=== PATIENT | female | born 2000 | race Two or more races ===

== ENCOUNTER 2020-02-18 14:45 | Outpatient (CLI) | payer OTHER | END 2020-02-18 14:56 | disposition home or self-care (01) | LOC: RAD 14:45 | PROVIDERS: ATTEND General Practice | DX: S60.031A Contusion of right middle finger without damage to nail, initial encounter (principal) ==

== ENCOUNTER 2023-03-30 16:11 | Emergency (ER) | payer OTHER ==
[~2023-03-30] VITALS: Ht 157.5 cm; Wt 78.0 kg
[2023-03-30] MEDS ORDERED: ZOFRAN8 MG PO (22:53)
[2023-03-30] MEDS ORDERED: PEPCID AC20 MG PO (22:53)
== END 2023-03-30 23:05 | disposition home or self-care (01) ==
LOC: ER 16:11
DX: Z34.90 Encounter for supervision of normal pregnancy, unspecified, unspecified trimester (principal); K52.89 Other specified noninfective gastroenteritis and colitis; R10.9 Unspecified abdominal pain; R11.10 Vomiting, unspecified

== ENCOUNTER 2023-06-03 08:04 | Outpatient (CLI) | payer OTHER ==
[~2023-06-03 08:04] MED LIST: PEPCID AC20 MG PO; ZOFRAN8 MG PO
== END 2023-06-03 10:36 | disposition home or self-care (01) ==
LOC: PRENATAL 08:04
PROVIDERS: ATTEND Obstetrics & Gynecology Maternal & Fetal Medicine
DX: O35.3XX0 Maternal care for (suspected) damage to fetus from viral disease in mother, not applicable or unspecified (principal); O44.00 Complete placenta previa NOS or without hemorrhage, unspecified trimester; O43.90 Unspecified placental disorder, unspecified trimester; O34.219 Maternal care for unspecified type scar from previous cesarean delivery; Z3A.20 20 weeks gestation of pregnancy

== ENCOUNTER → 2023-06-30 | Emergency (ER) | payer OTHER ==
[~2023-06-30] VITALS: Ht 157.5 cm; Wt 85.3 kg
[~2023-06-30] MED LIST changes: +ZITHROMAX200 MG PO
== END | disposition left against medical advice (07) ==
LOC: ER 16:47
DX: Z53.21 Procedure and treatment not carried out due to patient leaving prior to being seen by health care provider (principal)

== ENCOUNTER 2023-07-01 16:02 | Emergency (ER) | payer OTHER ==
[~2023-07-01] VITALS: Ht 157.5 cm; Wt 85.3 kg
[~2023-07-01 16:02] MED LIST changes: -ZITHROMAX200 MG PO
[2023-07-01 17:18] LABS: PH,URINE 7.5 (5.0-8.0); URINE APPEARANCE Clear; URINE BILIRRUBIN Negative (NEGATIVE); URINE BLOOD Negative; URINE COLOR Yellow; URINE GLUCOSE Negative (NEGATIVE); URINE LEUKOCYTE Negative; URINE NITRATE Negative; URINE PROTEIN Trace (NEGATIVE)
[2023-07-01 17:21] LABS: URINE BACTERIA 624.7 uL (0.0-1933); URINE EPITHELIAL CELLS 16.2 uL (0.0-38.8); URINE RBC 5.4 uL (0.0-20.8); URINE WBC 14.9 uL (0.0-23.2)
[2023-07-01 17:22] LABS: HEMATOCRIT 28.8 % (36.0-45.00); HEMOGLOBIN 9.9 g/dL (12.0-15.00); MEAN CELL VOLUME 81.6 fL (80.00-100.00); MEAN CORPUSCULAR HEMOGLOBIN 28.2 pg (27.00-32.0); MEAN CORPUSCULAR HGB CONC 34.5 g/dl (32.0-36.0); PLATELET COUNT 327 K/uL (150-450); RED BLOOD COUNT 3.53 M/uL (4.00-6.00); RED CELL DISTRIBUTION WIDTH 14.3 % (11.5-14.5)
[2023-07-01 17:27] LABS: CALCIUM 8.6 mg/dL (8.5-10.1); CREATININE SERUM 0.59 mg/dL (0.55-1.02); GFR 125.22; POTASSIUM 3.46 mEq/L (3.5-5.1)
[2023-07-01] MEDS ORDERED: ZITHROMAX200 MG PO (18:13)
== END 2023-07-01 18:20 | disposition home or self-care (01) ==
LOC: ER 16:02
PROVIDERS: General Practice
DX: O26.892 Other specified pregnancy related conditions, second trimester (principal); Z3A.23 23 weeks gestation of pregnancy; B34.9 Viral infection, unspecified; Z20.822 Contact with and (suspected) exposure to COVID-19

== ENCOUNTER 2023-08-07 23:05 | Inpatient (IN) | payer OTHER ==
[~2023-08-07] VITALS: Ht 167.6 cm; Wt 113.4 kg
[~2023-08-07 23:05] MED LIST changes: +ZITHROMAX200 MG PO
[2023-08-08 00:08] LABS: ABG PH 7.429 (7.35-7.45); ABG PO2 58.8 mmHg (80-100); ABG pCO2 34.5 mmHg (35-45)
[2023-08-08 00:09] LABS: BASE EXCESS -1.2 mmol/l; BICARBONATE 22.4 mmol/l (23-25); SaO2 90.8 %; Tco2 23.4 mmol/l; allen test SATISFACTORY; o2 21 %; puncture site RADIAL RIGHT
[2023-08-08 01:05] LABS: URINE APPEARANCE Clear; URINE BILIRRUBIN Negative (NEGATIVE); URINE BLOOD Negative; URINE COLOR Yellow; URINE GLUCOSE Negative (NEGATIVE); URINE LEUKOCYTE Negative; URINE NITRATE Negative; URINE PROTEIN Negative (NEGATIVE); URINE UROBILINOGEN 0.2 E.U./dl
[2023-08-08 01:06] LABS: URINE BACTERIA 239.3 uL (0.0-1933); URINE EPITHELIAL CELLS 4.9 uL (0.0-38.8); URINE WBC 2.7 uL (0.0-23.2)
[2023-08-08 01:07] LABS: URINE RBC 0.7 uL (0.0-20.8)
[2023-08-08 02:32] LABS: HEMATOCRIT 26.1 % (36.0-45.00); HEMOGLOBIN 8.9 g/dL (12.0-15.00); MEAN CORPUSCULAR HEMOGLOBIN 27.6 pg (27.00-32.0); MEAN CORPUSCULAR HGB CONC 34.2 g/dl (32.0-36.0); PLATELET COUNT 426 K/uL (150-450); RED BLOOD COUNT 3.22 M/uL (4.00-6.00); RED CELL DISTRIBUTION WIDTH 14.3 % (11.5-14.5)
[2023-08-08 03:13] LABS: CALCIUM 8.2 mg/dL (8.5-10.1); CREATININE SERUM 0.49 mg/dL (0.55-1.02); GFR 155.16; POTASSIUM 3.45 mEq/L (3.5-5.1)
[2023-08-12 18:08] LABS: HEMATOCRIT 26.9 % (36.0-45.00); MEAN CORPUSCULAR HEMOGLOBIN 27.2 pg (27.00-32.0); MEAN CORPUSCULAR HGB CONC 33.6 g/dl (32.0-36.0); PLATELET COUNT 440 K/uL (150-450); RED BLOOD COUNT 3.33 M/uL (4.00-6.00); RED CELL DISTRIBUTION WIDTH 14.9 % (11.5-14.5)
[2023-08-12 18:42] LABS: ALBUMIN 2.4 gm/dL (3.4-5.0); BILIRUBIN TOTAL 0.19 mg/dL (0.3-1.2); CALCIUM 8.8 mg/dL (8.5-10.1); CREATININE SERUM 0.62 mg/dL (0.55-1.02); GFR 118.26; GLOBULINA 3.8 G/DL (2.4-3.5); POTASSIUM 4.28 mEq/L (3.5-5.1); TOTAL PROTEIN 6.2 gm/dL (6.4-8.2)
[2023-08-12 20:16] LABS: PH,URINE 6.5 (5.0-8.0); URINE APPEARANCE Clear; URINE BILIRRUBIN Negative (NEGATIVE); URINE BLOOD Negative; URINE COLOR Yellow; URINE GLUCOSE Negative (NEGATIVE); URINE LEUKOCYTE Negative; URINE NITRATE Negative; URINE PROTEIN Negative (NEGATIVE); URINE UROBILINOGEN 0.2 E.U./dl
[2023-08-12 20:17] LABS: URINE BACTERIA 88.1 uL (0.0-1933); URINE EPITHELIAL CELLS 15.9 uL (0.0-38.8); URINE RBC 22.2 uL (0.0-20.8)
[2023-08-14 07:53] LABS: ALBUMIN 2.3 gm/dL (3.4-5.0); BILIRUBIN TOTAL 0.15 mg/dL (0.3-1.2); CALCIUM 8.3 mg/dL (8.5-10.1); CREATININE SERUM 0.42 mg/dL (0.55-1.02); GFR 185.36; GLOBULINA 3.2 G/DL (2.4-3.5); POTASSIUM 3.93 mEq/L (3.5-5.1); TOTAL PROTEIN 5.5 gm/dL (6.4-8.2)
[2023-08-14 08:15] LABS: HEMATOCRIT 25.5 % (36.0-45.00); HEMOGLOBIN 8.7 g/dL (12.0-15.00); MEAN CELL VOLUME 81.6 fL (80.00-100.00); MEAN CORPUSCULAR HEMOGLOBIN 27.8 pg (27.00-32.0); MEAN CORPUSCULAR HGB CONC 34.1 g/dl (32.0-36.0); PLATELET COUNT 385 K/uL (150-450); RED BLOOD COUNT 3.12 M/uL (4.00-6.00); RED CELL DISTRIBUTION WIDTH 14.9 % (11.5-14.5)
== END 2023-08-14 13:02 | disposition home or self-care (01) | DRG 832 ==
LOC: ER 23:05 → OB/GYN 08-08 17:04
PROVIDERS: Emergency Medicine; General Practice; Internal Medicine; ADMIT Obstetrics & Gynecology Obstetrics; ATTEND Obstetrics & Gynecology Obstetrics
PROC: 3E0F7GC Introduction of Other Therapeutic Substance into Respiratory Tract, Via Natural or Artificial Opening (ICD-10-PCS; principal; 2023-08-08)
PROC: 4A1HXCZ Monitoring of Products of Conception, Cardiac Rate, External Approach (ICD-10-PCS; 2023-08-08)
PROC: BY4FZZZ Ultrasonography of Third Trimester, Single Fetus (ICD-10-PCS; 2023-08-08)
PROC: BU4CZZZ Ultrasonography of Uterus and Ovaries (ICD-10-PCS; 2023-08-08)
DX: O99.513 Diseases of the respiratory system complicating pregnancy, third trimester (principal); O41.03X0 Oligohydramnios, third trimester, not applicable or unspecified; J06.9 Acute upper respiratory infection, unspecified; O26.843 Uterine size-date discrepancy, third trimester; O36.8130 Decreased fetal movements, third trimester, not applicable or unspecified; O34.211 Maternal care for low transverse scar from previous cesarean delivery; O26.853 Spotting complicating pregnancy, third trimester; Z3A.29 29 weeks gestation of pregnancy; Z20.822 Contact with and (suspected) exposure to COVID-19

== ENCOUNTER 2023-09-19 03:27 | Inpatient (IN) | payer OTHER ==
[~2023-09-19] VITALS: Ht 157.5 cm; Wt 89.8 kg
[2023-09-19 03:55] LABS: PH,URINE 6.5 (5.0-8.0); URINE APPEARANCE Clear; URINE BILIRRUBIN Negative (NEGATIVE); URINE BLOOD Negative; URINE COLOR Yellow; URINE GLUCOSE Negative (NEGATIVE); URINE LEUKOCYTE Negative; URINE NITRATE Negative; URINE UROBILINOGEN 0.2 E.U./dl
[2023-09-19 03:58] LABS: HEMATOCRIT 28.3 % (36.0-45.00); HEMOGLOBIN 9.3 g/dL (12.0-15.00); MEAN CELL VOLUME 80.9 fL (80.00-100.00); MEAN CORPUSCULAR HEMOGLOBIN 26.4 pg (27.00-32.0); MEAN CORPUSCULAR HGB CONC 32.7 g/dl (32.0-36.0); PLATELET COUNT 336 K/uL (150-450); RED CELL DISTRIBUTION WIDTH 17.3 % (11.5-14.5)
[2023-09-19 04:06] LABS: URINE EPITHELIAL CELLS 11.1 uL (0.0-38.8); URINE WBC 7.4 uL (0.0-23.2)
[2023-09-19 04:12] LABS: FIBRINOGEN 436 mg/dL (187.0-446.0); INR < 0.93; PARTIAL THROMBOPLASTIN TIME 25.5 SECONDS (22.0-34.0); PROTHROMBIN TIME 9.7 SECONDS (9.0-11.5)
[2023-09-19 04:15] LABS: ALBUMIN 2.7 gm/dL (3.4-5.0); BILIRUBIN TOTAL 0.2 mg/dL (0.3-1.2); CREATININE SERUM 0.56 mg/dL (0.55-1.02); GLOBULINA 3.6 G/DL (2.4-3.5); POTASSIUM 4.2 mEq/L (3.5-5.1); TOTAL PROTEIN 6.3 gm/dL (6.4-8.2)
[2023-09-19 04:43] LABS: URINE PROTEIN 300 (NEGATIVE)
[2023-09-21 10:36] LABS: HEMATOCRIT 29.7 % (36.0-45.00); HEMOGLOBIN 9.7 g/dL (12.0-15.00); MEAN CELL VOLUME 81.9 fL (80.00-100.00); MEAN CORPUSCULAR HEMOGLOBIN 26.7 pg (27.00-32.0); MEAN CORPUSCULAR HGB CONC 32.6 g/dl (32.0-36.0); PLATELET COUNT 352 K/uL (150-450); RED BLOOD COUNT 3.63 M/uL (4.00-6.00); RED CELL DISTRIBUTION WIDTH 17.1 % (11.5-14.5)
[2023-09-21 10:59] LABS: ALBUMIN 2.5 gm/dL (3.4-5.0); BILIRUBIN TOTAL 0.13 mg/dL (0.3-1.2); CALCIUM 7.7 mg/dL (8.5-10.1); CREATININE SERUM 0.53 mg/dL (0.55-1.02); GFR 141.72; GLOBULINA 3.6 G/DL (2.4-3.5); POTASSIUM 3.98 mEq/L (3.5-5.1); TOTAL PROTEIN 6.1 gm/dL (6.4-8.2); URIC ACID 5.3 mg/dL (2.5-7.5)
[2023-09-21 11:02] LABS: FIBRINOGEN 425 mg/dL (187.0-446.0); INR < 0.93; PARTIAL THROMBOPLASTIN TIME 22.8 SECONDS (22.0-34.0); PROTHROMBIN TIME 9.2 SECONDS (9.0-11.5)
== END 2023-09-22 08:45 | disposition left against medical advice (07) | DRG 833 ==
LOC: OBS/DEL 03:27 → LDR 08:03 → OBS/DEL 08:03 → LDR 09-22 08:45
PROVIDERS: Obstetrics & Gynecology Maternal & Fetal Medicine; ADMIT Obstetrics & Gynecology Obstetrics; ATTEND Obstetrics & Gynecology Obstetrics
PROC: 4A1HXCZ Monitoring of Products of Conception, Cardiac Rate, External Approach (ICD-10-PCS; principal; 2023-09-19)
PROC: BY4FZZZ Ultrasonography of Third Trimester, Single Fetus (ICD-10-PCS; 2023-09-19)
PROC: BU4CZZZ Ultrasonography of Uterus and Ovaries (ICD-10-PCS; 2023-09-19)
DX: O14.03 Mild to moderate pre-eclampsia, third trimester (principal); O26.843 Uterine size-date discrepancy, third trimester; O36.8130 Decreased fetal movements, third trimester, not applicable or unspecified; Z3A.35 35 weeks gestation of pregnancy; Z20.822 Contact with and (suspected) exposure to COVID-19

== ENCOUNTER 2023-09-29 16:54 | Inpatient (IN) | payer OTHER ==
[~2023-09-29] VITALS: Ht 157.5 cm; Wt 100.7 kg
[2023-09-29] MEDS ORDERED: MAGNESIUM SULFATE IN WATER 0.04 GM/ML IV.SOLN IV ONE (17:01)
[2023-09-29] MEDS ORDERED: MAGNESIUM SULFATE IN WATER 4 GM/100 ML PIGGYBACK IV ONE (17:01)
[2023-09-29] MEDS ORDERED: MAGNESIUM SULFATE IN WATER 100 ML IV ONE (17:15)
[2023-09-29] MEDS ORDERED: RINGERS SOLUTION,LACTATED 1,000 ML IV SCH (17:15)
[2023-09-29] MEDS ORDERED: MAGNESIUM SULFATE IN WATER 500 ML IV SCH (17:15)
[2023-09-29] MEDS ORDERED: LABETALOL HCL 100 MG/20 ML ML IV PRN (17:15)
[2023-09-29 17:39] LABS: HEMATOCRIT 28.4 % (36.0-45.00); HEMOGLOBIN 9.3 g/dL (12.0-15.00); MEAN CORPUSCULAR HEMOGLOBIN 26.4 pg (27.00-32.0); MEAN CORPUSCULAR HGB CONC 32.6 g/dl (32.0-36.0); PH,URINE 6.5 (5.0-8.0); PLATELET COUNT 376 K/uL (150-450); RED BLOOD COUNT 3.51 M/uL (4.00-6.00); RED CELL DISTRIBUTION WIDTH 17.9 % (11.5-14.5); URINE APPEARANCE Cloudy; URINE BILIRRUBIN Negative (NEGATIVE); URINE BLOOD Trace; URINE COLOR Yellow; URINE GLUCOSE Negative (NEGATIVE); URINE LEUKOCYTE Negative; URINE NITRATE Negative; URINE PROTEIN >=1000 (NEGATIVE); URINE UROBILINOGEN 0.2 E.U./dl
[2023-09-29 17:42] LABS: URINE EPITHELIAL CELLS 90.4 uL (0.0-38.8); URINE RBC 5.6 uL (0.0-20.8)
[2023-09-29 17:57] LABS: INR < 0.93; PARTIAL THROMBOPLASTIN TIME 23.6 SECONDS (22.0-34.0); PROTHROMBIN TIME 9.3 SECONDS (9.0-11.5)
[2023-09-29 18:04] LABS: ALBUMIN 1.6 gm/dL (3.4-5.0); ALKALINE PHOSPHATASE 113 U/L (50-136); ALT/SGPT 13 U/L (12-78); ANION GAP 11 (10.0-20.0); AST/SGOT 10 U/L (15-37); BLOOD UREA NITROGEN 13 mg/dL (7-18); BUN CREA RATIO 23 (7.0-25.0); CALCIUM 8.2 mg/dL (8.5-10.1); CARBON DIOXIDE 25 mEq/L (21-32); CHLORIDE 110 mmol/L (98-107); CREATININE SERUM 0.57 mg/dL (0.55-1.02); GFR 130.31; GLOBULINA 3.2 G/DL (2.4-3.5); GLUCOSE FASTING 77 mg/dL (65-100); OSMOLALITY SERUM 280 MOSM/KG (275-295); SODIUM 141 mmol/L (136-145); TOTAL PROTEIN 4.8 gm/dL (6.4-8.2)
[2023-09-29 18:06] LABS: BILIRUBIN TOTAL < 0.10 mg/dL (0.3-1.2)
[2023-09-29 18:16] LABS: URINE EPITHELIAL CELLS 0-4 /HPF
[2023-09-29] MEDS ORDERED: BETAMETHASONE ACETATE,SOD PHOS 30 MG/5 ML ML IM ONE (19:00)
[2023-09-29] MEDS ORDERED: PROMETHAZINE HCL 25 MG/ML AMPUL IV ONE (23:45)
[2023-09-29] MEDS ORDERED: MEPERIDINE HCL/PF 50 MG/ML VIAL IV ONE (23:45)
[2023-09-30] MEDS ORDERED: SODIUM CHLORIDE3 M1 (08:08)
[2023-09-30] MEDS ORDERED: MAGNESIUM SULFATE IN WATER 0.04 GM/ML IV.SOLN IV ONE (13:49)
[2023-09-30] MEDS ORDERED: MEPERIDINE HCL/PF 25 MG/ML VIAL IM ONE (14:30)
[2023-09-30] MEDS ORDERED: PROMETHAZINE HCL 25 MG/ML AMPUL IM ONE (14:30)
[2023-09-30] MEDS ORDERED: OXYTOCIN 10 UNITS/ML VIAL ONE (15:53)
[2023-09-30] MEDS ORDERED: ERYTHROMYCIN BASE 3.5 GM OINT...G. OP ONE (15:53)
[2023-09-30] MEDS ORDERED: OXYTOCIN 10 UNITS/ML VIAL IV ONE (17:30)
[2023-09-30] MEDS ORDERED: CEFAZOLIN SODIUM 1,000 MG VIAL IV ONE (17:30)
[2023-09-30] MEDS ORDERED: ERYTHROMYCIN BASE 1 GM TUBE OP ONE (17:30)
[2023-09-30] MEDS ORDERED: CARBOPROST TROMETHAMINE 250 MCG/ML AMPUL IM ONE (18:24)
[2023-09-30] MEDS ORDERED: PROMETHAZINE HCL 25 MG/ML AMPUL IM PRN (18:40)
[2023-09-30] MEDS ORDERED: OXYTOCIN 1,000 ML IV SCH (18:45)
[2023-09-30] MEDS ORDERED: MEPERIDINE HCL/PF 50 MG/ML VIAL IM PRN (18:45)
[2023-09-30] MEDS ORDERED: BETAMETHASONE ACETATE,SOD PHOS 30 MG/5 ML ML IM ONE (19:10)
[2023-09-30 23:55] LABS: HEMATOCRIT 28.1 % (36.0-45.00); HEMOGLOBIN 9.2 g/dL (12.0-15.00); MEAN CELL VOLUME 81.9 fL (80.00-100.00); MEAN CORPUSCULAR HEMOGLOBIN 26.7 pg (27.00-32.0); MEAN CORPUSCULAR HGB CONC 32.6 g/dl (32.0-36.0); PLATELET COUNT 411 K/uL (150-450); RED BLOOD COUNT 3.43 M/uL (4.00-6.00); RED CELL DISTRIBUTION WIDTH 17.8 % (11.5-14.5)
[2023-10-01] MEDS ORDERED: ACETAMINOPHEN 500 MG GEL..CAP PO ONE ×2 (08:50→09:00)
[2023-10-01 15:47] LABS: HEMATOCRIT 30.2 % (36.0-45.00); HEMOGLOBIN 9.6 g/dL (12.0-15.00); MEAN CELL VOLUME 81.6 fL (80.00-100.00); MEAN CORPUSCULAR HGB CONC 31.9 g/dl (32.0-36.0); PLATELET COUNT 455 K/uL (150-450); RED CELL DISTRIBUTION WIDTH 18.1 % (11.5-14.5)
[2023-10-01] MEDS ORDERED: OxyCODONE HCL/APAP UD (PERCOCET) PO PRN (19:00)
[2023-10-02] MEDS ORDERED: MISOPROSTOL 25 MCG/4 ML GEL.W.APPL VAG ONE (18:00)
[2023-10-02] MEDS ORDERED: CEFAZOLIN SODIUM 1,000 MG VIAL IV SCH (18:00)
[2023-10-03] MEDS ORDERED: NIFEDIPINE 30 MG TAB.SA.OSM PO SCH (09:38)
== END 2023-10-03 13:39 | disposition home or self-care (01) | DRG 788 ==
LOC: LDR 16:54 → OB/GYN 09-30 19:58 → LDR 09-30 21:51 → OB/GYN 10-01 14:56
PROVIDERS: ADMIT Obstetrics & Gynecology Obstetrics; ATTEND Obstetrics & Gynecology Obstetrics
PROC: 4A1HXCZ Monitoring of Products of Conception, Cardiac Rate, External Approach (ICD-10-PCS; 2023-09-29)
PROC: 3E033VJ Introduction of Other Hormone into Peripheral Vein, Percutaneous Approach (ICD-10-PCS; 2023-09-30)
PROC: 10D00Z1 Extraction of Products of Conception, Low, Open Approach (ICD-10-PCS; principal; 2023-09-30 15:30)
DX: O14.04 Mild to moderate pre-eclampsia, complicating childbirth (principal); O34.211 Maternal care for low transverse scar from previous cesarean delivery; O60.14X0 Preterm labor third trimester with preterm delivery third trimester, not applicable or unspecified; Z3A.36 36 weeks gestation of pregnancy; Z37.0 Single live birth; Z20.822 Contact with and (suspected) exposure to COVID-19